=== PATIENT | female | born 1955 | race Caucasian/White ===

== ENCOUNTER 2022-03-22 14:04 | Outpatient (CLI) | payer MEDICARE | END 2022-03-22 14:05 | disposition home or self-care (01) | LOC: CSHMAMMO 14:04 | PROVIDERS: ATTEND Family Medicine | DX: Z12.31 Encounter for screening mammogram for malignant neoplasm of breast (principal); Z13.820 Encounter for screening for osteoporosis; M85.851 Other specified disorders of bone density and structure, right thigh; Z78.0 Asymptomatic menopausal state; Z80.3 Family history of malignant neoplasm of breast; Z91.89 Other specified personal risk factors, not elsewhere classified | CPT/HCPCS: 77063; 77067; 77080 ==

== ENCOUNTER 2022-04-08 08:05 | Outpatient (CLI) | payer MEDICARE | END 2022-04-08 08:06 | disposition home or self-care (01) | LOC: CSHULT 08:05 | PROVIDERS: ATTEND Family Medicine | DX: R55 Syncope and collapse (principal) | CPT/HCPCS: 93880 ==

== ENCOUNTER 2023-11-21 15:47 | Outpatient (CLI) | payer MEDICARE | END 2023-11-21 15:48 | disposition home or self-care (01) | LOC: CSHRAD 15:47 | PROVIDERS: ATTEND Family Medicine | DX: R49.0 Dysphonia (principal) | CPT/HCPCS: 70360; 71046 ==